=== PATIENT | female | born 1990 | race Caucasian/White ===

== ENCOUNTER 2023-10-26 14:38 | Outpatient (RCR) | payer OTHER ==
[~2023-10-26 14:38] MED LIST: AMOXICILLIN 8751 TAB PO; WELLBUTRIN XL150 MG PO
== END 2023-11-06 ==
LOC: WSOH
DX: T14.8XXD Other injury of unspecified body region, subsequent encounter (principal); J45.909 Unspecified asthma, uncomplicated; W54.0XXD Bitten by dog, subsequent encounter; Y99.0 Civilian activity done for income or pay